=== PATIENT | female | born 2000 | race Caucasian/White ===

== ENCOUNTER → 2023-02-28 | Outpatient (CLI) | payer MEDICAID ==
--- NOTE | 2023-02-28 14:50 | Diagnostic Imaging Report ---
EXAMINATION: Chest 2 view HISTORY: Short of breath COMPARISON: None available. FINDINGS: The lungs are clear without edema or pneumonia. No pleural effusion or pneumothorax. Heart size is normal. IMPRESSION: 1. Clear lungs. Dictated by: Dictated on workstation # [id number]
== END ==
LOC: RAD FS 14:32
PROVIDERS: ATTEND Registered Nurse Emergency
DX: R06.02 Shortness of breath (principal)
CPT/HCPCS: 71046